=== PATIENT | female | born 1955 | race Caucasian/White ===

== ENCOUNTER → 2016-12-22 | Outpatient (CLI) | payer OTHER ==
[2014-12-25 09:50] VITALS: BP 120/60
--- NOTE | 2016-12-22 11:48 | CT ---
HISTORY: Hematuria Study: CT abdomen and pelvis without contrast Comparison: September 29, 2014 Technique: Multiple axial images of the abdomen and pelvis were obtained from the lung bases to the pubic symphy sis without the administration of IV contrast. Sagittal and coronal reformations were provided. Findings: The visualized portions of the lung bases are unremarkable. There is no hydronephrosis. There is a 5 mm calculus in the mid right kidney. No left renal calculus is demonstrated. There is a small exophy tic cyst off the upper pole of the left kidney laterally. The liver and spleen and pancreas and adren al glands are unremarkable. There is a filter in the IVC.. The gallbladder is unremarkable in its CT appearance. No significant mesenteric lymphadenopathy or stranding can be observed. No free fluid o r free air is seen within the abdomen. The appendix is normal. The uterus is absent. There is no abn ormal adnexal mass. No bowel wall thickening or bowel dilatation is present. The colon is unremarkab le. Specifically, there is no diverticulosis noted within the sigmoid colon. The urinary bladder is grossly unremarkable. The bony structures are grossly intact. IMPRESSION: 1. 5 mm calculus in the right mid kidney without hydronephrosis Reported By:
== END ==
LOC: RAD 10:29
PROVIDERS: ATTEND Internal Medicine
DX: R31.9 Hematuria, unspecified (principal)
CPT/HCPCS: 74176

== ENCOUNTER → 2017-03-06 | Outpatient (CLI) | payer OTHER ==
[2014-12-25 09:50] VITALS: BP 120/60
--- NOTE | 2017-03-06 15:03 | MG ---
HISTORY: SCREENING Comparison: 12/01/2015 FINDINGS: Bilateral CC and MLO projections of the right and left breast were obtained. Fatty fibroglandular ti ssue is seen to be present. No significant architectural distortion, mass or clustered microcalcific ations can be observed to suggest malignancy. No skin thickening or nipple retraction is appreciated . No pathological lymphadenopathy can be identified. Benign-appearing calcifications scattered thro ughout the right and left breasts are observed. IMPRESSION: NO RADIOGRAPHIC EVIDENCE OF MALIGNANCY. ACR CATEGORY 2 - benign findings. FOLLOW-UP EXAM 1 YEAR. Diagnostic CAD was utilized and reviewed. * 0 (ZERO) - ASSESSMENT INCOMPLETE; ADDITIONAL IMAGING IS NEEDED. * 1/ (ONE) - NEGATIVE. * 2/II (TWO) - BENIGN FINDINGS. * 3/III (THREE) - PROBABLY BENIGN FINDING; SHORT INTERVAL FOLLOW-UP SUGGESTED. * 4/IV (FOUR) - SUSPICIOUS ABNORMALITY; BIOPSY SHOULD BE CONSIDERED. * 5/V - HIGHLY SUSPICIOUS OF MALIGNANCY; BIOPSY SHOULD BE PERFORMED. A NEGATIVE X-RAY REPORT SHOULD NOT DELAY BIOPSY IF A DOMINANT OR CLINICALLY SUSPICIOUS MASS IS PRESENT; 4 TO 8 PERCENT OF CANCERS ARE NOT IDENTIFIED BY X-RAY. A NEGA TIVE REPORT MAY REINFORCE THE CLINICAL IMPRESSION. ADENOSIS AND DENSE BREASTS MAY OBSCURE AN UNDERLY ING NEOPLASM. Reported By:
== END ==
LOC: RAD 09:41
PROVIDERS: ATTEND Specialist
DX: Z12.31 Encounter for screening mammogram for malignant neoplasm of breast (principal)
CPT/HCPCS: 77067

== ENCOUNTER 2022-06-23 14:05 | Observation (INO) ==
[2022-06-23] MEDS: NORMODYNE INJ 20 MG VIAL IV PRN ×5 (15:49→23:06)
[2022-06-23] MEDS: NS 1,000 ML IV 1,000 ML IV SCH (15:49)
[2022-06-23] MEDS ORDERED: CATAPRES-TTS-3 TD SCH (16:00)
[2022-06-23 16:10] LABS: BASOPHILS # (AUTO) 0.1 X10^3/uL (0.0-0.1); BASOPHILS % (AUTO) 0.8 % (0.2-1.0); EOSINOPHILS # (AUTO) 0.2 x10^3/uL (0.0-0.2); EOSINOPHILS % (AUTO) 1.8 % (0.9-2.9); LYMPHOCYTES # (AUTO) 2.5 X10^3/uL (1.3-2.9); LYMPHOCYTES % (AUTO) 21.7 % (21.0-51.0); MEAN CORPUSCULAR HEMOGLOBIN 26.2 pg (27.0-34.0); MEAN CORPUSCULAR HGB CONC 32.7 g/dL (33.0-35.0); MEAN CORPUSCULAR VOLUME 80.2 fL (80.0-100.0); MEAN PLATELET VOLUME 8.7 fL (7.4-11.0); MONOCYTES # (AUTO) 0.9 x10^3/uL (0.3-0.8); MONOCYTES % (AUTO) 7.6 % (0.0-13.0); NEUTROPHILS # (AUTO) 7.7 x10^3/uL (2.2-4.8); NEUTROPHILS % (AUTO) 68.1 % (42.0-75.0); PLATELET COUNT 264 X10^3/uL (150.0-450.0); RED BLOOD COUNT 5.36 X10^6/uL (3.5-5.4); RED CELL DISTRIBUTION WIDTH 15.7 % (11.6-16.5); WHITE BLOOD COUNT 11.3 X10^3/uL (3.6-10.0)
[2022-06-23 16:12] VITALS: BMI 53.8
--- NOTE | 2022-06-23 16:13 | EKG ---
Test Reason : sob Blood Pressure : */* mmHG Vent. Rate : 87 BPM Atrial Rate : 87 BPM P-R Int : 188 ms QRS Dur : 80 ms QT Int : 396 ms P-R-T Axes : 49 21 55 degrees QTc Int : 476 ms Normal sinus rhythm Nonspecific T wave abnormality Prolonged QT Abnormal ECG No previous ECGs available Confirmed by Margarito Faustin ([id number]) on 06/24/2022 10:19:03 AM Referred By: Confirmed By: Margarito Faustin
[2022-06-23 16:37] LABS: ALANINE AMINOTRANSFERASE 25 Units/L (12-78); ALBUMIN 3.6 g/dL (3.4-5.0); ALKALINE PHOSPHATASE 114 Units/L (46-116); ASPARTATE AMINO TRANSFERASE 18 Units/L (15-37); BLOOD UREA NITROGEN 13 mg/dL (7-18); CALCIUM 8.9 mg/dL (8.5-10.1); CARBON DIOXIDE 34.9 mmol/L (21-32); CHLORIDE 102 mmol/L (98-107); COR NA(FOR HYPERGLY) 143 mmol/L (136-145); CREATINE KINASE 80 Units/L (26-192); CREATININE 1.45 mg/dL (0.55-1.02); GLUCOSE 133 mg/dL (65-99); POTASSIUM 3.1 mmol/L (3.5-5.1); SODIUM 142 mmol/L (136-145); TOTAL PROTEIN 6.8 g/dL (6.4-8.2); eGFR NON BLACK RACES 38 (>60)
[2022-06-23 20:10] LABS: BILIRUBIN,URINE NEGATIVE (NEGATIVE); BLOOD/HEMOGLOBIN,URINE 1+ (NEGATIVE); GLUCOSE, URINE NEGATIVE (NEGATIVE); KETONES,URINE NEGATIVE (NEGATIVE); LEUKOCYTE ESTERASE ,URINE NEGATIVE (NEGATIVE); NITRITES,URINE NEGATIVE (NEGATIVE); PROTEIN,URINE 4+ (NEGATIVE); UROBILINOGEN,URINE NORMAL (NORMAL)
[2022-06-23 20:23] LABS: APPEARANCE,URINE CLEAR (CLEAR); COLOR,URINE YELLOW (YELLOW); RBC,URINE 0-2 /HPF (0-3)
[2022-06-23 20:24] LABS: BACTERIA,URINE 2+ /HPF (NEGATIVE); SQUAMOUS EPITHELIAL CELL,UR NUMEROUS /HPF (NEGATIVE)
[2022-06-23 20:25] LABS: HYALINE CASTS, URINE FEW /LPF (NEGATIVE)
[2022-06-23] MEDS: RESTORIL CAP 15 MG PO PRN (21:00)
[2022-06-23] MEDS ORDERED: PATIENT'S HOME MEDICATION (Aspirin 81 mg Tablet) PO SCH (23:15)
[2022-06-24] MEDS: ASPIRIN EC 81 MG PO SCH ×2 (00:45→08:35)
[2022-06-24] MEDS: NS 1,000 ML IV 1,000 ML IV SCH ×3 (03:45→20:56)
[2022-06-24 03:53] LABS: BASOPHILS # (AUTO) 0.1 X10^3/uL (0.0-0.1); BASOPHILS % (AUTO) 1.2 % (0.2-1.0); EOSINOPHILS # (AUTO) 0.3 x10^3/uL (0.0-0.2); EOSINOPHILS % (AUTO) 4.2 % (0.9-2.9); HEMATOCRIT 39.5 % (36.0-47.0); LYMPHOCYTES # (AUTO) 2.5 X10^3/uL (1.3-2.9); LYMPHOCYTES % (AUTO) 30.1 % (21.0-51.0); MEAN CORPUSCULAR HEMOGLOBIN 26.4 pg (27.0-34.0); MEAN CORPUSCULAR HGB CONC 32.9 g/dL (33.0-35.0); MEAN CORPUSCULAR VOLUME 80.2 fL (80.0-100.0); MEAN PLATELET VOLUME 8.9 fL (7.4-11.0); MONOCYTES # (AUTO) 0.6 x10^3/uL (0.3-0.8); MONOCYTES % (AUTO) 7.4 % (0.0-13.0); NEUTROPHILS # (AUTO) 4.7 x10^3/uL (2.2-4.8); NEUTROPHILS % (AUTO) 57.1 % (42.0-75.0); PLATELET COUNT 251 X10^3/uL (150.0-450.0); RED BLOOD COUNT 4.92 X10^6/uL (3.5-5.4); RED CELL DISTRIBUTION WIDTH 15.6 % (11.6-16.5); WHITE BLOOD COUNT 8.2 X10^3/uL (3.6-10.0)
[2022-06-24 04:06] LABS: ALANINE AMINOTRANSFERASE 21 Units/L (12-78); ALBUMIN 3.1 g/dL (3.4-5.0); ALKALINE PHOSPHATASE 100 Units/L (46-116); ASPARTATE AMINO TRANSFERASE 17 Units/L (15-37); BLOOD UREA NITROGEN 15 mg/dL (7-18); CARBON DIOXIDE 31.6 mmol/L (21-32); CHLORIDE 103 mmol/L (98-107); COR CA(FOR HYPOALB) 8.7 mg/dL (8.5-10.1); CREATINE KINASE 49 Units/L (26-192); CREATININE 1.37 mg/dL (0.55-1.02); GLUCOSE 108 mg/dL (65-99); SODIUM 141 mmol/L (136-145); eGFR NON BLACK RACES 41 (>60)
[2022-06-24] MEDS ORDERED: POTASSIUM CHLORIDE LIQ 20 MEQ UDC PO PRN (04:11)
[2022-06-24] MEDS ORDERED: KLOR-CON PO PRN (04:11)
[2022-06-24] MEDS ORDERED: MICRO K EXTEN CAP 10 MEQ PO PRN (04:11)
[2022-06-24] MEDS: NORMODYNE INJ 20 MG VIAL IV PRN (04:45)
[2022-06-24] MEDS ORDERED: APRESOLINE INJ 20 MG VIAL IVP ONE ×2 (05:11→14:13)
[2022-06-24] MEDS ORDERED: APRESOLINE INJ 20 MG VIAL ONE (05:14)
[2022-06-24] MEDS: K-DUR TAB 20 MEQ PO PRN (05:24)
[2022-06-24] MEDS: FLEXERIL TAB 10 MG PO SCH ×3 (05:24→21:00)
[2022-06-24] MEDS: NEURONTIN CAP 400 MG PO SCH ×3 (05:24→21:00)
--- NOTE | 2022-06-24 07:27 | RAD ---
HISTORYShortness of breathSTUDYChest AP [id number]/11/2019FINDINGSHear t size is normal. Rachel are normal. Lung torres are clear. No pleural effusions are identified. Bony thorax is unremarkable.IMPRESSIONNo significant abnormality identifiedElectronically signed by: GIRISH WILKERSON (June 24, 2022 07:25:49)
[2022-06-24] MEDS: SINGULAIR TAB 10 MG PO SCH (08:34)
[2022-06-24] MEDS: K-DUR TAB 20 MEQ PO SCH (08:34)
[2022-06-24] MEDS: XARELTO PO SCH (08:34)
[2022-06-24] MEDS: VASOTEC TAB 20 MG PO SCH ×2 (08:35→20:57)
[2022-06-24] MEDS: ULORIC PO SCH (08:35)
[2022-06-24] MEDS: ISOSORBIDE DINITRATE PO SCH ×2 (08:35→20:57)
[2022-06-24] MEDS ORDERED: FIORICET TAB PO PRN (09:00)
[2022-06-24] MEDS: NORVASC TAB 5 MG PO SCH (12:34)
[2022-06-24] MEDS: MAXZIDE 37.5/25 MG PO SCH (12:34)
[2022-06-25] MEDS: RESTORIL CAP 15 MG PO PRN ×2 (00:07→20:13)
[2022-06-25] MEDS: NORMODYNE INJ 20 MG VIAL IV PRN ×4 (00:08→13:15)
--- NOTE | 2022-06-25 00:11 | DR.H&P ---
H&P - History & Physical for Day of: H&P Date: 06/23/22 - Chief Complaint Chief Complaint: HYPERTENSION, SOB, HEADACHE, NAUSEA - History of Present Illness History of Present Illness: IS A 66 YEAR OLD PATIENT OF OURS. SHE WAS A DIRECT ADMISSION FROM THE OFFICE FOR EVALUATION AND TREATMENT OF HYPERTENSIVE CRISIS, SHORTNESS OF BREATH, HEADACHE, AND INTRACTABLE NAUSEA. HER SYMPTOMS STARTED ON 06/22/2022. SHE DESCRIBES HEADACHE DULL AND INTERMITTENT. SHE RATES PAIN A 6/10. SHE REPORTS THAT HER BLOOD PRESSURES AT HOME HAVE BEEN OVER 200/100. HER PMH INCLUDES: VALVULAR HEART DISEASE, HYPERLIPIDEMIA, HTN, MITRAL VALVE PROLAPSE, SLEEP APNEA, GERD, HYPOTHYROIDISM, ANXIETY, HISTORY OF DVTs, HYSTERECTOMY. ON ARRIVAL TO THE HOSPITAL, HER VITALS WERE: 98.3-107-20-92%-215/130. LABS WERE OBTAINED. WBC 11.3, RBC 5.36, HGB 14.0, HCT 43.0, PLT COUNT 264, SODIUM 142, POTASSIUM 3.1, CHLORIDE 102, CARBON DIOXIDE 34.9, BUN 13, CREATININE 1.45, GLUCOSE 133, CALCIUM 8.9, TOTAL BILI 0.50, AST 18, ALT 25, ALK PHOS 114, CREATINE KINASE 80, TROPONIN 79.6, TOTAL PROTEIN 6.8, ALBUMIN 3.6. A URINALYSIS WAS OBTAINED AND REVEALED: WBC 0-2, RBC 0-2, BACTERIA 2+, LEUKOCYTES NEGATIVE, BLOOD 1+, PROTEIN 4+. A URINE CULTURE WAS SET UP. A CHEST XRAY WAS OBTAINED AND REVEALED: No significant abnormality identified. AN EKG WAS OBTAINED AND REVEALED: NORMAL SINUS RHYTHM WITH HR 87 BPM. SHE WAS STARTED ON NORMAL SALINE AT 80 ML/HR, CLONIDINE 0.3MG/HR TD PATCH, LABETALOL 10MG IV Q15MIN PRN, MAXZIDE 37.5-25MG DAILY, AMLODIPINE 5MG DAILY, AND THE POTASSIUM PROTCOL. HER HOME MEDICATIONS OF FIORICET, ECOTRIN, FLEXERIL, ULORIC, NEURONTIN, ISOSORBIDE, MONTELUKAST, XARELTO, AND RESTORIL WERE RESUMED. OTHERWISE, WE WILL FOLLOW-UP WITH AM LABS AND CONTINUE TO MONITOR. - Past Medical History Past Medical History: Hypertension, GERD, Gout, Headaches - Past Surgical History Surgical History: Hysterectomy, Ortho Surgery - Family History Family Medical History: Cancer - Social History Does patient currently use any type of tobacco product: No Have you used tobacco products in the last 12 months: No Alcohol Use: None Drug Use: None - Medications Home Medications: codeine Allergy (Verified 06/22/22 17:18) Penicillins Allergy (Verified 01/24/19 16:26) CONTINUE taking the following medications aspirin 81 mg tablet 81 mg PO DAILY 06/23/22 [History] cyclobenzaprine 10 mg tablet 10 mg PO TID 06/23/22 [History] enalapril maleate 20 mg tablet 20 mg PO BID 06/23/22 [History] febuxostat 40 mg tablet 40 mg PO DAILY 06/23/22 [History] gabapentin 400 mg capsule 400 mg PO TID 06/23/22 [History] isosorbide dinitrate 20 mg tablet 20 mg PO BID 06/23/22 [History] montelukast 10 mg tablet 10 mg PO DAILY 06/23/22 [History] potassium chloride 20 mEq tablet,extended release 20 meq PO DAILY 06/23/22 [History] rivaroxaban 10 mg tablet 10 mg PO DAILY 06/23/22 [History] - Review of Systems Constitutional: No Symptoms Reported Eyes: No Symptoms Reported ENT: No Symptoms Reported Respiratory: Shortness of Breath Cardiovascular: No Symptoms Reported Gastrointestinal: Nausea Genitourinary: No Symptoms Reported Musculoskeletal: No Symptoms Reported Skin: No Symptoms Reported Neurological: Other (HEACACHE ) - Physical Exam Vital Signs: Temperature 98.7 F Pulse Rate [Left Brachial] 115 Respiratory Rate 20 Blood Pressure [Right Arm] 182/86 Blood Pressure [Left Arm] 178/92 O2 Sat by Pulse Oximetry 96 Oriented: Normal Eyes: Normal Ear: Normal Nose: Normal Throat: Normal Respiratory: Clear Throughout Cardiovascular: Tachycardia : Normal Auscultation: Bowel Sounds: Normal Palpation: Normal Tenderness: Normal Skin: Normal Musculoskeletal: Normal Psychiatric: Normal Mood Description: Calm Affect: Normal Speech Pattern: Clear - Assessment/Plan (1) Malignant hypertensive urgency Status: Acute Plan: ADMIT, NORMAL SALINE AT 80 ML/HR, CLONIDINE 0.3MG/HR TD PATCH, LABETALOL 10MG IV Q15MIN PRN, MAXZIDE 37.5-25MG DAILY, AMLODIPINE 5MG DAILY, AND THE POTASSIUM PROTCOL. RESUME HOME MEDS OF: FIORICET, ECOTRIN, FLEXERIL, ULORIC, NEURONTIN, ISOSORBIDE, MONTELUKAST, XARELTO, AND RESTORIL (2) Shortness of breath Status: Acute (3) Nausea Status: Acute (4) Persistent headaches Status: Acute (5) GERD (gastroesophageal reflux disease) Qualifiers: Esophagitis presence: esophagitis presence not specified Qualified Code(s): K21.9 - Gastro-esophageal reflux disease without esophagitis Status: Chronic (6) Hyperlipidemia Status: Acute (7) Hypothyroidism Qualifiers: Hypothyroidism type: acquired Qualified Code(s): E03.9 - Hypothyroidism, unspecified Status: Chronic - Allergies Allergies/Adverse Reactions: Allergies Allergy/AdvReac Type Severity Reaction Status Date / Time codeine Allergy Verified 06/22/22 17:18 Penicillins Allergy Verified 01/24/19 16:26
[2022-06-25] MEDS: FLEXERIL TAB 10 MG PO SCH ×3 (05:43→20:14)
[2022-06-25] MEDS: NEURONTIN CAP 400 MG PO SCH ×3 (05:43→20:13)
[2022-06-25 05:55] LABS: BASOPHILS # (AUTO) 0.1 X10^3/uL (0.0-0.1); BASOPHILS % (AUTO) 0.7 % (0.2-1.0); EOSINOPHILS # (AUTO) 0.5 x10^3/uL (0.0-0.2); EOSINOPHILS % (AUTO) 5.9 % (0.9-2.9); HEMOGLOBIN 12.6 g/dL (12.0-16.0); LYMPHOCYTES # (AUTO) 2.1 X10^3/uL (1.3-2.9); MEAN CORPUSCULAR HGB CONC 32.4 g/dL (33.0-35.0); MEAN CORPUSCULAR VOLUME 80.2 fL (80.0-100.0); MEAN PLATELET VOLUME 8.9 fL (7.4-11.0); MONOCYTES # (AUTO) 0.8 x10^3/uL (0.3-0.8); NEUTROPHILS # (AUTO) 4.6 x10^3/uL (2.2-4.8); NEUTROPHILS % (AUTO) 57.4 % (42.0-75.0); PLATELET COUNT 242 X10^3/uL (150.0-450.0); RED BLOOD COUNT 4.86 X10^6/uL (3.5-5.4); RED CELL DISTRIBUTION WIDTH 15.9 % (11.6-16.5); WHITE BLOOD COUNT 8.1 X10^3/uL (3.6-10.0)
[2022-06-25 06:11] LABS: ALANINE AMINOTRANSFERASE 22 Units/L (12-78); ALBUMIN 3.1 g/dL (3.4-5.0); ALKALINE PHOSPHATASE 96 Units/L (46-116); ASPARTATE AMINO TRANSFERASE 16 Units/L (15-37); BLOOD UREA NITROGEN 15 mg/dL (7-18); CALCIUM 8.4 mg/dL (8.5-10.1); CARBON DIOXIDE 29.6 mmol/L (21-32); CHLORIDE 105 mmol/L (98-107); COR CA(FOR HYPOALB) 9.1 mg/dL (8.5-10.1); CREATININE 1.26 mg/dL (0.55-1.02); GLUCOSE 106 mg/dL (65-99); POTASSIUM 3.5 mmol/L (3.5-5.1); SODIUM 141 mmol/L (136-145); TOTAL PROTEIN 5.9 g/dL (6.4-8.2); eGFR NON BLACK RACES 45 (>60)
[2022-06-25] MEDS: XARELTO PO SCH (08:24)
[2022-06-25] MEDS: ASPIRIN EC 81 MG PO SCH (08:25)
[2022-06-25] MEDS: MAXZIDE 37.5/25 MG PO SCH (08:25)
[2022-06-25] MEDS: ULORIC PO SCH (08:25)
[2022-06-25] MEDS: VASOTEC TAB 20 MG PO SCH ×2 (08:25→20:14)
[2022-06-25] MEDS: SINGULAIR TAB 10 MG PO SCH (08:25)
[2022-06-25] MEDS: NORVASC TAB 5 MG PO SCH (08:25)
[2022-06-25] MEDS: ISOSORBIDE DINITRATE PO SCH ×2 (08:25→20:14)
[2022-06-25] MEDS: K-DUR TAB 20 MEQ PO SCH (08:37)
--- NOTE | 2022-06-25 11:18 | PCM.PROG ---
Progress Note Progress Note for Day of Date of Exam: 06/25/22 Subjective Subjective: Patient seen at bedside, no events overnight. She is admitted for hypertensive crisis and shortness of breath. She had a headache on admission which has resolved. She states her nausea is better. Her BP at home was SBP in 200s, it has improved this morning. Labs/imaging reviewed - Ct-head (-) BUN/Cr 15.26 Urine Cx: contamination Plan: Monitor BP closely, continue clonidine patch, norvasc, Vasotec and Maxzide. Continue Labetalol prn for SBP > 160. Continue home medications. Re place K as per protocol. Monitor AM labs/imaging. Past Medical Family Social History Allergies: Allergies codeine Allergy (Verified 06/22/22 17:18) Penicillins Allergy (Verified 01/24/19 16:26) Vital Signs and I&O's Vital Signs: Temperature 97.8 F Pulse Rate [Left Brachial] 102 Respiratory Rate 20 Blood Pressure [Right Arm] 171/78 Blood Pressure [Left Arm] 178/92 O2 Sat by Pulse Oximetry 97 Intake and Output: Intake & Output 06/22/22 06/23/22 06/24/22 06/25/22 23:59 23:59 23:59 23:59 Intake Total 1060 / 1060 2647 / 2647 1306 / 1306 Balance 1060 / 1060 2647 / 2647 1306 / 1306 Physical Exam Oriented: Normal Eyes: Normal Ear: Normal Nose: Normal Throat: Normal Cardiovascular: Normal Auscultation: Bowel Sounds: Normal Tenderness: Normal Skin: Normal Musculoskeletal: Normal Psychiatric: Normal Mood Description: Calm Affect: Normal Speech Pattern: Clear and Appropriate Laboratory and Diagnostics Result Diagrams: 06/25/22 05:31 06/25/22 05:31 Labs: 06/23/22 19:42 Urine,Clean Catch Urine Culture - Final Laboratory WBC 8.1 X10^3/uL (3.6-10.0) 06/25/22 05:31 RBC 4.86 X10^6/uL (3.5-5.4) 06/25/22 05:31 Hgb 12.6 g/dL (12.0-16.0) 06/25/22 05:31 Hct 39.0 % (36.0-47.0) 06/25/22 05:31 MCV 80.2 fL (80.0-100.0) 06/25/22 05:31 MCH 26.0 pg (27.0-34.0) L 06/25/22 05:31 MCHC 32.4 g/dL (33.0-35.0) L 06/25/22 05:31 RDW 15.9 % (11.6-16.5) 06/25/22 05:31 Plt Count 242 X10^3/uL (150.0-450.0) 06/25/22 05:31 MPV 8.9 fL (7.4-11.0) 06/25/22 05:31 Neut % (Auto) 57.4 % (42.0-75.0) 06/25/22 05:31 Lymph % (Auto) 26.0 % (21.0-51.0) 06/25/22 05:31 [place] % (Auto) 10.0 % (0.0-13.0) 06/25/22 05:31 Eos % (Auto) 5.9 % (0.9-2.9) H 06/25/22 05:31 Baso % (Auto) 0.7 % (0.2-1.0) 06/25/22 05:31 Neut # (Auto) 4.6 x10^3/uL (2.2-4.8) 06/25/22 05:31 Lymph # (Auto) 2.1 X10^3/uL (1.3-2.9) 06/25/22 05:31 [place] # (Auto) 0.8 x10^3/uL (0.3-0.8) 06/25/22 05:31 Eos # (Auto) 0.5 x10^3/uL (0.0-0.2) H 06/25/22 05:31 Baso # (Auto) 0.1 X10^3/uL (0.0-0.1) 06/25/22 05:31 Absolute Nucleated RBC 0.0 /100WBC 06/25/22 05:31 Sodium 141 mmol/L (136-145) 06/25/22 05:31 Corrected Sodium TNP 06/25/22 05:31 Potassium 3.5 mmol/L (3.5-5.1) 06/25/22 05:31 Chloride 105 mmol/L (98-107) 06/25/22 05:31 Carbon Dioxide 29.6 mmol/L (21-32) 06/25/22 05:31 BUN 15 mg/dL (7-18) 06/25/22 05:31 Creatinine 1.26 mg/dL (0.55-1.02) H 06/25/22 05:31 Est GFR (MDRD) Af Amer 55 (>60) L 06/25/22 05:31 Est GFR (MDRD) Non-Af 45 (>60) L 06/25/22 05:31 Glucose 106 mg/dL (65-99) H 06/25/22 05:31 Calcium 8.4 mg/dL (8.5-10.1) L 06/25/22 05:31 Corrected Calcium 9.1 mg/dL (8.5-10.1) 06/25/22 05:31 Magnesium 2.0 mg/dL (2.0-2.9) 06/25/22 05:31 Total Bilirubin 0.50 mg/dL (0.2-1.0) 06/25/22 05:31 AST 16 Units/L (15-37) 06/25/22 05:31 ALT 22 Units/L (12-78) 06/25/22 05:31 Alkaline Phosphatase 96 Units/L (46-116) 06/25/22 05:31 Creatine Kinase 49 Units/L (26-192) 06/24/22 03:35 Troponin I High Sens 50.8 ng/L (4.0-60.0) 06/24/22 03:35 Total Protein 5.9 g/dL (6.4-8.2) L 06/25/22 05:31 Albumin 3.1 g/dL (3.4-5.0) L 06/25/22 05:31 Globulin 2.8 g/dL (2.5-4.5) 06/25/22 05:31 Albumin/Globulin Ratio 1.1 Ratio (1.1-2.1) 06/25/22 05:31 Specimen Type Clean catch urine 06/23/22 19:42 Urine Color Yellow (YELLOW) 06/23/22 19:42 Urine Appearance Clear (CLEAR) 06/23/22 19:42 Urine pH 6.0 (5.0 - 8.0) 06/23/22 19:42 Ur Specific [place] 1.020 (1.000-1.030) 06/23/22 19:42 Urine Protein 4+ (NEGATIVE) 06/23/22 19:42 Urine Glucose (UA) Negative (NEGATIVE) 06/23/22 19:42 Urine Ketones Negative (NEGATIVE) 06/23/22 19:42 Urine Blood 1+ (NEGATIVE) 06/23/22 19:42 Urine Nitrite Negative (NEGATIVE) 06/23/22 19:42 Urine Bilirubin Negative (NEGATIVE) 06/23/22 19:42 Urine Urobilinogen Normal (NORMAL) 06/23/22 19:42 Ur Leukocyte Esterase Negative (NEGATIVE) 06/23/22 19:42 Urine RBC 0-2 /HPF (0-3) 06/23/22 19:42 Urine WBC 0-2 /HPF (0-5) 06/23/22 19:42 Ur Squamous Epith Cells Numerous /HPF (NEGATIVE) 06/23/22 19:42 Urine Bacteria 2+ /HPF (NEGATIVE) 06/23/22 19:42 Hyaline Casts Few /LPF (NEGATIVE) 06/23/22 19:42 Ur Culture Indicated? Yes/culture set up 06/23/22 19:42 Plan (1) Malignant hypertensive urgency: Status: Acute (2) Shortness of breath: Status: Acute (3) Nausea: Status: Acute (4) Persistent headaches: Status: Acute (5) GERD (gastroesophageal reflux disease): Status: Chronic Qualifiers: Esophagitis presence: esophagitis presence not specified Qualified Code(s): K21.9 - Gastro-esophageal reflux disease without esophagitis (6) Hyperlipidemia: Status: Acute (7) Hypothyroidism: Status: Chronic Qualifiers: Hypothyroidism type: acquired Qualified Code(s): E03.9 - Hypothyroidism, unspecified
[2022-06-25] MEDS ORDERED: APRESOLINE INJ 20 MG VIAL IVP ONE (14:19)
[2022-06-25] MEDS ORDERED: APRESOLINE INJ 20 MG VIAL ONE (14:23)
[2022-06-25] MEDS ORDERED: APRESOLINE TAB 25 MG PO SCH ×2 (20:00→22:00)
[2022-06-25] MEDS: NS 1,000 ML IV 1,000 ML IV SCH (20:01)
[2022-06-25] MEDS: APRESOLINE INJ 20 MG VIAL IVP PRN (21:30)
[2022-06-26] MEDS ORDERED: APRESOLINE INJ 20 MG VIAL IVP ONE (00:25)
[2022-06-26] MEDS: NS 1,000 ML IV 1,000 ML IV SCH ×2 (04:39→08:22)
[2022-06-26 05:36] LABS: BASOPHILS # (AUTO) 0.1 X10^3/uL (0.0-0.1); EOSINOPHILS # (AUTO) 0.4 x10^3/uL (0.0-0.2); EOSINOPHILS % (AUTO) 4.2 % (0.9-2.9); HEMATOCRIT 40.7 % (36.0-47.0); HEMOGLOBIN 13.4 g/dL (12.0-16.0); LYMPHOCYTES # (AUTO) 2.2 X10^3/uL (1.3-2.9); MEAN CORPUSCULAR HEMOGLOBIN 26.1 pg (27.0-34.0); MEAN CORPUSCULAR HGB CONC 32.9 g/dL (33.0-35.0); MEAN CORPUSCULAR VOLUME 79.5 fL (80.0-100.0); MEAN PLATELET VOLUME 9.2 fL (7.4-11.0); MONOCYTES # (AUTO) 0.7 x10^3/uL (0.3-0.8); MONOCYTES % (AUTO) 7.7 % (0.0-13.0); NEUTROPHILS # (AUTO) 5.7 x10^3/uL (2.2-4.8); NEUTROPHILS % (AUTO) 63.1 % (42.0-75.0); PLATELET COUNT 270 X10^3/uL (150.0-450.0); RED BLOOD COUNT 5.12 X10^6/uL (3.5-5.4); RED CELL DISTRIBUTION WIDTH 16.1 % (11.6-16.5)
[2022-06-26] MEDS: NEURONTIN CAP 400 MG PO SCH ×3 (05:45→21:00)
[2022-06-26] MEDS: APRESOLINE TAB 25 MG PO SCH ×3 (05:45→21:00)
[2022-06-26] MEDS: FLEXERIL TAB 10 MG PO SCH ×3 (05:46→21:00)
[2022-06-26 05:49] LABS: ALBUMIN 3.1 g/dL (3.4-5.0); CALCIUM 8.5 mg/dL (8.5-10.1); CARBON DIOXIDE 27.9 mmol/L (21-32); COR CA(FOR HYPOALB) 9.2 mg/dL (8.5-10.1); CREATININE 1.21 mg/dL (0.55-1.02); POTASSIUM 3.5 mmol/L (3.5-5.1); TOTAL PROTEIN 6.1 g/dL (6.4-8.2)
[2022-06-26] MEDS: XARELTO PO SCH (08:31)
[2022-06-26] MEDS: ASPIRIN EC 81 MG PO SCH (08:31)
[2022-06-26] MEDS: K-DUR TAB 20 MEQ PO SCH (08:31)
[2022-06-26] MEDS: VASOTEC TAB 20 MG PO SCH ×2 (08:31→20:56)
[2022-06-26] MEDS: ULORIC PO SCH (08:31)
[2022-06-26] MEDS: NORVASC TAB 5 MG PO SCH (08:32)
[2022-06-26] MEDS: MAXZIDE 37.5/25 MG PO SCH (08:32)
[2022-06-26] MEDS: SINGULAIR TAB 10 MG PO SCH (08:32)
[2022-06-26] MEDS: ISOSORBIDE DINITRATE PO SCH ×2 (08:32→20:55)
[2022-06-26] MEDS ORDERED: NORCO 5/325 MG TAB PO PRN (10:56)
[2022-06-26] MEDS ORDERED: ZOFRAN INJ 4 MG VIAL IVP PRN (10:58)
--- NOTE | 2022-06-26 10:59 | PCM.PROG ---
Progress Note Progress Note for Day of Date of Exam: 06/26/22 Subjective Subjective: Patient seen at bedside, overnight patient's BP remained elevated in the 200s. She is admitted for hypertensive crisis and shortness of breath. She was given multiple different medications including IV hydralazine and adjusting doses of current PO medications. She states she feels fine, denies headache, N/V. She is currently on room air and sitting on the side of her bed. She reports having right shoulder/arm pain since she had a fall in April. She had a fracture and was taken to [facility] in [place] for reduction. She has had limited ROM and pain in that arm. Patient's BP this morning was 170/90. Labs/imaging reviewed - Ct-head (-) Plan: Monitor BP closely, continue clonidine patch, norvasc 10 mg daily , Vasotec and Maxzide. Continue hydralazine 50 mg TID. Continue IV hydralazine prn. DC IVF, order renal US for AM. Change to cardiac diet. Will add [place] prn as patient states her BP tends to go up when she is in a lot of pain and that's what was happening yesterday. Monitor AM labs/imaging. Past Medical Family Social History Allergies: Allergies codeine Allergy (Verified 06/22/22 17:18) Penicillins Allergy (Verified 01/24/19 16:26) Vital Signs and I&O's Vital Signs: Temperature 98.1 F Pulse Rate [Left Brachial] 128 Respiratory Rate 20 Blood Pressure [Right Arm] 173/103 Blood Pressure [Left Arm] 170/90 O2 Sat by Pulse Oximetry 96 Intake and Output: Intake & Output 06/23/22 06/24/22 06/25/22 06/26/22 23:59 23:59 23:59 23:59 Intake Total 1060 / 1060 2647 / 2647 2761 / 2761 960 / 960 Balance 1060 / 1060 2647 / 2647 2761 / 2761 960 / 960 Physical Exam Oriented: Normal Eyes: Normal Ear: Normal Nose: Normal Throat: Normal Cardiovascular: Normal Auscultation: Bowel Sounds: Normal Tenderness: Normal Skin: Normal Musculoskeletal: Right and Arm (limited ROM, slight tenderness ) Psychiatric: Normal Mood Description: Calm Affect: Normal Speech Pattern: Clear and Appropriate Laboratory and Diagnostics Result Diagrams: 06/26/22 05:15 05/07/23 05:15 Labs: 06/23/22 19:42 Urine,Clean Catch Urine Culture - Final Laboratory WBC 9.0 X10^3/uL (3.6-10.0) 06/26/22 05:15 RBC 5.12 X10^6/uL (3.5-5.4) 06/26/22 05:15 Hgb 13.4 g/dL (12.0-16.0) 06/26/22 05:15 Hct 40.7 % (36.0-47.0) 06/26/22 05:15 MCV 79.5 fL (80.0-100.0) L 06/26/22 05:15 MCH 26.1 pg (27.0-34.0) L 06/26/22 05:15 MCHC 32.9 g/dL (33.0-35.0) L 06/26/22 05:15 RDW 16.1 % (11.6-16.5) 06/26/22 05:15 Plt Count 270 X10^3/uL (150.0-450.0) 06/26/22 05:15 MPV 9.2 fL (7.4-11.0) 06/26/22 05:15 Neut % (Auto) 63.1 % (42.0-75.0) 06/26/22 05:15 Lymph % (Auto) 24.0 % (21.0-51.0) 06/26/22 05:15 [place] % (Auto) 7.7 % (0.0-13.0) 06/26/22 05:15 Eos % (Auto) 4.2 % (0.9-2.9) H 06/26/22 05:15 Baso % (Auto) 1.0 % (0.2-1.0) 06/26/22 05:15 Neut # (Auto) 5.7 x10^3/uL (2.2-4.8) H 06/26/22 05:15 Lymph # (Auto) 2.2 X10^3/uL (1.3-2.9) 06/26/22 05:15 [place] # (Auto) 0.7 x10^3/uL (0.3-0.8) 06/26/22 05:15 Eos # (Auto) 0.4 x10^3/uL (0.0-0.2) H 06/26/22 05:15 Baso # (Auto) 0.1 X10^3/uL (0.0-0.1) 06/26/22 05:15 Absolute Nucleated RBC 0.1 /100WBC 06/26/22 05:15 Sodium 138 mmol/L (136-145) 06/26/22 05:15 Corrected Sodium 139 mmol/L (136-145) 06/26/22 05:15 Potassium 3.5 mmol/L (3.5-5.1) 06/26/22 05:15 Chloride 104 mmol/L (98-107) 06/26/22 05:15 Carbon Dioxide 27.9 mmol/L (21-32) 06/26/22 05:15 BUN 14 mg/dL (7-18) 06/26/22 05:15 Creatinine 1.21 mg/dL (0.55-1.02) H 06/26/22 05:15 Est GFR (MDRD) Af Amer 57 (>60) L 06/26/22 05:15 Est GFR (MDRD) Non-Af 47 (>60) L 06/26/22 05:15 Glucose 123 mg/dL (65-99) H 06/26/22 05:15 Calcium 8.5 mg/dL (8.5-10.1) 06/26/22 05:15 Corrected Calcium 9.2 mg/dL (8.5-10.1) 06/26/22 05:15 Magnesium 2.0 mg/dL (2.0-2.9) 06/25/22 05:31 Total Bilirubin 0.50 mg/dL (0.2-1.0) 06/26/22 05:15 AST 21 Units/L (15-37) 06/26/22 05:15 ALT 19 Units/L (12-78) 06/26/22 05:15 Alkaline Phosphatase 102 Units/L (46-116) 06/26/22 05:15 Creatine Kinase 49 Units/L (26-192) 06/24/22 03:35 Troponin I High Sens 50.8 ng/L (4.0-60.0) 06/24/22 03:35 Total Protein 6.1 g/dL (6.4-8.2) L 06/26/22 05:15 Albumin 3.1 g/dL (3.4-5.0) L 06/26/22 05:15 Globulin 3.0 g/dL (2.5-4.5) 06/26/22 05:15 Albumin/Globulin Ratio 1.0 Ratio (1.1-2.1) L 06/26/22 05:15 Specimen Type Clean catch urine 06/23/22 19:42 Urine Color Yellow (YELLOW) 06/23/22 19:42 Urine Appearance Clear (CLEAR) 06/23/22 19:42 Urine pH 6.0 (5.0 - 8.0) 06/23/22 19:42 Ur Specific [place] 1.020 (1.000-1.030) 06/23/22 19:42 Urine Protein 4+ (NEGATIVE) 06/23/22 19:42 Urine Glucose (UA) Negative (NEGATIVE) 06/23/22 19:42 Urine Ketones Negative (NEGATIVE) 06/23/22 19:42 Urine Blood 1+ (NEGATIVE) 06/23/22 19:42 Urine Nitrite Negative (NEGATIVE) 06/23/22 19:42 Urine Bilirubin Negative (NEGATIVE) 06/23/22 19:42 Urine Urobilinogen Normal (NORMAL) 06/23/22 19:42 Ur Leukocyte Esterase Negative (NEGATIVE) 06/23/22 19:42 Urine RBC 0-2 /HPF (0-3) 06/23/22 19:42 Urine WBC 0-2 /HPF (0-5) 06/23/22 19:42 Ur Squamous Epith Cells Numerous /HPF (NEGATIVE) 06/23/22 19:42 Urine Bacteria 2+ /HPF (NEGATIVE) 06/23/22 19:42 Hyaline Casts Few /LPF (NEGATIVE) 06/23/22 19:42 Ur Culture Indicated? Yes/culture set up 06/23/22 19:42 Plan (1) Malignant hypertensive urgency: Status: Acute (2) Right shoulder injury: Status: Acute (3) Shortness of breath: Status: Acute (4) Nausea: Status: Acute (5) Persistent headaches: Status: Acute (6) GERD (gastroesophageal reflux disease): Status: Chronic Qualifiers: Esophagitis presence: esophagitis presence not specified Qualified Code(s): K21.9 - Gastro-esophageal reflux disease without esophagitis (7) Hyperlipidemia: Status: Acute (8) Hypothyroidism: Status: Chronic Qualifiers: Hypothyroidism type: acquired Qualified Code(s): E03.9 - Hypothyroidism, unspecified
[2022-06-26] MEDS: APRESOLINE INJ 20 MG VIAL IVP PRN (15:54)
[2022-06-26] MEDS: K-DUR TAB 20 MEQ PO PRN (20:55)
[2022-06-26] MEDS: RESTORIL CAP 15 MG PO PRN (20:56)
[2022-06-27] MEDS: FLEXERIL TAB 10 MG PO SCH ×3 (05:34→21:12)
[2022-06-27] MEDS: NEURONTIN CAP 400 MG PO SCH ×3 (05:35→21:13)
[2022-06-27] MEDS: APRESOLINE TAB 25 MG PO SCH ×3 (05:35→21:12)
[2022-06-27 06:03] LABS: BASOPHILS # (AUTO) 0.1 X10^3/uL (0.0-0.1); EOSINOPHILS # (AUTO) 0.4 x10^3/uL (0.0-0.2); EOSINOPHILS % (AUTO) 4.6 % (0.9-2.9); HEMATOCRIT 39.8 % (36.0-47.0); HEMOGLOBIN 13.1 g/dL (12.0-16.0); LYMPHOCYTES # (AUTO) 2.3 X10^3/uL (1.3-2.9); LYMPHOCYTES % (AUTO) 28.3 % (21.0-51.0); MEAN CORPUSCULAR HGB CONC 32.8 g/dL (33.0-35.0); MEAN CORPUSCULAR VOLUME 79.2 fL (80.0-100.0); MEAN PLATELET VOLUME 9.3 fL (7.4-11.0); MONOCYTES # (AUTO) 0.8 x10^3/uL (0.3-0.8); MONOCYTES % (AUTO) 10.2 % (0.0-13.0); NEUTROPHILS # (AUTO) 4.6 x10^3/uL (2.2-4.8); NEUTROPHILS % (AUTO) 55.9 % (42.0-75.0); PLATELET COUNT 260 X10^3/uL (150.0-450.0); RED BLOOD COUNT 5.03 X10^6/uL (3.5-5.4); RED CELL DISTRIBUTION WIDTH 15.9 % (11.6-16.5); WHITE BLOOD COUNT 8.3 X10^3/uL (3.6-10.0)
[2022-06-27 06:19] LABS: ALANINE AMINOTRANSFERASE 21 Units/L (12-78); ALBUMIN 3.1 g/dL (3.4-5.0); ALKALINE PHOSPHATASE 89 Units/L (46-116); ASPARTATE AMINO TRANSFERASE 17 Units/L (15-37); BLOOD UREA NITROGEN 14 mg/dL (7-18); CALCIUM 8.6 mg/dL (8.5-10.1); CARBON DIOXIDE 26.7 mmol/L (21-32); CHLORIDE 103 mmol/L (98-107); COR CA(FOR HYPOALB) 9.3 mg/dL (8.5-10.1); CREATININE 1.23 mg/dL (0.55-1.02); GLUCOSE 106 mg/dL (65-99); POTASSIUM 3.8 mmol/L (3.5-5.1); SODIUM 137 mmol/L (136-145); eGFR NON BLACK RACES 46 (>60)
[2022-06-27] MEDS: NS 1,000 ML IV 1,000 ML IV SCH (08:03)
[2022-06-27] MEDS: MAXZIDE 37.5/25 MG PO SCH (09:17)
[2022-06-27] MEDS: ULORIC PO SCH (09:17)
[2022-06-27] MEDS: XARELTO PO SCH (09:17)
[2022-06-27] MEDS: K-DUR TAB 20 MEQ PO SCH (09:17)
[2022-06-27] MEDS: NORVASC TAB 5 MG PO SCH (09:17)
[2022-06-27] MEDS: ASPIRIN EC 81 MG PO SCH (09:17)
[2022-06-27] MEDS: SINGULAIR TAB 10 MG PO SCH (09:18)
[2022-06-27] MEDS: VASOTEC TAB 20 MG PO SCH ×2 (09:18→21:12)
[2022-06-27] MEDS: ISOSORBIDE DINITRATE PO SCH ×2 (09:18→21:12)
--- NOTE | 2022-06-27 11:10 | US ---
HISTORYHypertensionSTUDYRENAL USCOMPARISONNoneTECHNIQUEMultiple calzada scale and color flow Doppler images of the kidneys were obtained. The region of the urinary bladder was evaluated as well.FINDINGSThe right kidney is normal in echotexture and size. The right kidney measures 10.3 x 4.4 x 4.7 cm. Normal cortical thickness of 1.2 cm is observed. No focal mass, hydronephrosis, or stones identified.The left kidney is unremarkable in its echotexture and size. The left kidney measures 10.7 x 4.2 x 5.0 cm. Normal cortical thickness of 1.5 cm is observed. Anechoic cortical based cystic lesion is noted measuring 4.3 x 3.0 x 3.4 cm. No focal mass, hydronephrosis, or stone can be seen within the left kidney.The region of the urinary bladder is grossly unremarkable.IMPRESSIONCortical a cyst left kidney. Otherwise, unremarkable evaluation of the kidneys.Electronically signed by: JOCELIN POWERS (June 27, 2022 10:58:04)
[2022-06-27] MEDS: RESTORIL CAP 15 MG PO PRN (21:13)
[2022-06-27] MEDS: K-DUR TAB 20 MEQ PO PRN (21:13)
[2022-06-28] MEDS: FLEXERIL TAB 10 MG PO SCH ×3 (05:20→21:05)
[2022-06-28] MEDS: NEURONTIN CAP 400 MG PO SCH (05:20)
[2022-06-28] MEDS: APRESOLINE TAB 25 MG PO SCH ×3 (05:20→21:05)
[2022-06-28 06:45] LABS: BASOPHILS # (AUTO) 0.1 X10^3/uL (0.0-0.1); BASOPHILS % (AUTO) 0.6 % (0.2-1.0); EOSINOPHILS # (AUTO) 0.4 x10^3/uL (0.0-0.2); EOSINOPHILS % (AUTO) 4.7 % (0.9-2.9); HEMOGLOBIN 12.9 g/dL (12.0-16.0); LYMPHOCYTES # (AUTO) 2.3 X10^3/uL (1.3-2.9); LYMPHOCYTES % (AUTO) 27.9 % (21.0-51.0); MEAN CORPUSCULAR HEMOGLOBIN 25.9 pg (27.0-34.0); MEAN CORPUSCULAR HGB CONC 32.1 g/dL (33.0-35.0); MEAN CORPUSCULAR VOLUME 80.7 fL (80.0-100.0); MEAN PLATELET VOLUME 9.4 fL (7.4-11.0); MONOCYTES # (AUTO) 0.8 x10^3/uL (0.3-0.8); MONOCYTES % (AUTO) 10.4 % (0.0-13.0); NEUTROPHILS # (AUTO) 4.5 x10^3/uL (2.2-4.8); NEUTROPHILS % (AUTO) 56.4 % (42.0-75.0); PLATELET COUNT 259 X10^3/uL (150.0-450.0); RED BLOOD COUNT 4.96 X10^6/uL (3.5-5.4); WHITE BLOOD COUNT 8.1 X10^3/uL (3.6-10.0)
[2022-06-28 06:54] LABS: CALCIUM 8.4 mg/dL (8.5-10.1); CARBON DIOXIDE 26.8 mmol/L (21-32); COR CA(FOR HYPOALB) 9.2 mg/dL (8.5-10.1); CREATININE 1.36 mg/dL (0.55-1.02); TOTAL PROTEIN 5.9 g/dL (6.4-8.2)
[2022-06-28] MEDS: VASOTEC TAB 20 MG PO SCH ×2 (08:35→21:05)
[2022-06-28] MEDS: K-DUR TAB 20 MEQ PO SCH (08:35)
[2022-06-28] MEDS: ISOSORBIDE DINITRATE PO SCH ×2 (08:35→21:04)
[2022-06-28] MEDS: MAXZIDE 37.5/25 MG PO SCH (08:35)
[2022-06-28] MEDS: ASPIRIN EC 81 MG PO SCH (08:35)
[2022-06-28] MEDS: XARELTO PO SCH (08:35)
[2022-06-28] MEDS: NORVASC TAB 5 MG PO SCH (08:36)
[2022-06-28] MEDS: SINGULAIR TAB 10 MG PO SCH (08:36)
[2022-06-28] MEDS: ULORIC PO SCH (08:36)
[2022-06-28] MEDS: CARDIZEM CD 240 MG 24-HR PO SCH (10:31)
[2022-06-28] MEDS: FIORICET TAB PO SCH ×2 (10:31→21:06)
[2022-06-28] MEDS: NORCO 5/325 MG TAB PO SCH ×2 (11:16→18:06)
[2022-06-28] MEDS: NEURONTIN CAP 300 MG PO SCH ×2 (14:11→21:05)
[2022-06-28] MEDS: RESTORIL CAP 15 MG PO PRN (21:04)
[2022-06-29] MEDS: NORCO 5/325 MG TAB PO SCH (02:59)
[2022-06-29] MEDS: APRESOLINE TAB 25 MG PO SCH (05:25)
[2022-06-29] MEDS: NEURONTIN CAP 300 MG PO SCH (05:25)
[2022-06-29] MEDS: FLEXERIL TAB 10 MG PO SCH (05:25)
[2022-06-29 06:29] LABS: BASOPHILS # (AUTO) 0.1 X10^3/uL (0.0-0.1); BASOPHILS % (AUTO) 1.2 % (0.2-1.0); EOSINOPHILS # (AUTO) 0.4 x10^3/uL (0.0-0.2); EOSINOPHILS % (AUTO) 4.6 % (0.9-2.9); HEMATOCRIT 41.1 % (36.0-47.0); HEMOGLOBIN 13.2 g/dL (12.0-16.0); LYMPHOCYTES # (AUTO) 2.7 X10^3/uL (1.3-2.9); LYMPHOCYTES % (AUTO) 35.3 % (21.0-51.0); MEAN CORPUSCULAR HEMOGLOBIN 25.8 pg (27.0-34.0); MEAN CORPUSCULAR HGB CONC 32.1 g/dL (33.0-35.0); MEAN CORPUSCULAR VOLUME 80.5 fL (80.0-100.0); MEAN PLATELET VOLUME 9.7 fL (7.4-11.0); MONOCYTES # (AUTO) 0.6 x10^3/uL (0.3-0.8); MONOCYTES % (AUTO) 8.4 % (0.0-13.0); NEUTROPHILS # (AUTO) 3.9 x10^3/uL (2.2-4.8); NEUTROPHILS % (AUTO) 50.5 % (42.0-75.0); PLATELET COUNT 283 X10^3/uL (150.0-450.0); RED BLOOD COUNT 5.11 X10^6/uL (3.5-5.4); WHITE BLOOD COUNT 7.7 X10^3/uL (3.6-10.0)
[2022-06-29 06:53] LABS: ALANINE AMINOTRANSFERASE 28 Units/L (12-78); ALBUMIN 3.1 g/dL (3.4-5.0); ALKALINE PHOSPHATASE 86 Units/L (46-116); ASPARTATE AMINO TRANSFERASE 21 Units/L (15-37); BLOOD UREA NITROGEN 24 mg/dL (7-18); CALCIUM 8.7 mg/dL (8.5-10.1); CHLORIDE 108 mmol/L (98-107); COR CA(FOR HYPOALB) 9.4 mg/dL (8.5-10.1); CREATININE 1.47 mg/dL (0.55-1.02); GLUCOSE 103 mg/dL (65-99); POTASSIUM 4.1 mmol/L (3.5-5.1); SODIUM 143 mmol/L (136-145); eGFR NON BLACK RACES 38 (>60)
[2022-06-29] MEDS: K-DUR TAB 20 MEQ PO SCH (09:32)
[2022-06-29] MEDS: VASOTEC TAB 20 MG PO SCH (09:32)
[2022-06-29] MEDS: FIORICET TAB PO SCH (09:33)
[2022-06-29] MEDS: MAXZIDE 37.5/25 MG PO SCH (09:33)
[2022-06-29] MEDS: ASPIRIN EC 81 MG PO SCH (09:33)
[2022-06-29] MEDS: XARELTO PO SCH (09:34)
[2022-06-29] MEDS: ULORIC PO SCH (09:34)
[2022-06-29] MEDS: ISOSORBIDE DINITRATE PO SCH (09:34)
[2022-06-29] MEDS: CARDIZEM CD 240 MG 24-HR PO SCH (09:34)
[2022-06-29] MEDS: SINGULAIR TAB 10 MG PO SCH (09:34)
[2022-06-29 11:14] VITALS: BP 125/63
== END 2022-06-29 11:40 | disposition home or self-care (01) ==
LOC: MED/SURG
PROVIDERS: ADMIT Internal Medicine; ATTEND Internal Medicine
DX: M19.90 Unspecified osteoarthritis, unspecified site; R51.9 Headache, unspecified; K21.9 Gastro-esophageal reflux disease without esophagitis; I16.0 Hypertensive urgency; R77.8 Other specified abnormalities of plasma proteins; E03.8 Other specified hypothyroidism; R06.02 Shortness of breath; M25.511 Pain in right shoulder; F41.8 Other specified anxiety disorders; E78.49 Other hyperlipidemia

== ENCOUNTER 2023-10-13 06:42 | Observation (INO) ==
[2023-10-13] MEDS: NOZIN NASAL SANITIZER TP ONE (06:58)
[2023-10-13] MEDS: LR 1,000 ML IV 1,000 ML IV ONE (07:00)
[2023-10-13] MEDS: CHECK PATCH XX ONE (07:42)
[2023-10-13] MEDS: BRIDION ONE (08:12)
[2023-10-13] MEDS: NS 100 ML IV 100 ML ONE (08:12)
[2023-10-13] MEDS: VERSED ONE (08:12)
[2023-10-13] MEDS: ZEMURON 100 MG VIAL ONE (08:12)
[2023-10-13] MEDS: TORADOL 30 MG VIAL ONE (08:12)
[2023-10-13] MEDS: FENTANYL VIAL INJ 100 mcg ONE (08:12)
[2023-10-13] MEDS: ANCEF VIAL 1 GRAM ONE (08:12)
[2023-10-13] MEDS: ZOFRAN INJ 4 MG VIAL ONE (08:12)
[2023-10-13] MEDS: REGLAN INJ 10 MG VIAL ONE (08:12)
[2023-10-13] MEDS ORDERED: SUPRANE ONE (08:12)
[2023-10-13] MEDS: DIPRIVAN VIAL 20 ML ONE (08:12)
[2023-10-13] MEDS: PEPCID 20 MG VIAL ONE (08:12)
[2023-10-13] MEDS: XYLOCAINE 2 % (PLAIN) ONE (08:12)
[2023-10-13] MEDS: SUPRANE ONE (08:27)
[2023-10-13] MEDS: BACTROBAN TOPICAL OINT ONE (08:36)
[2023-10-13] MEDS: OFIRMEV IV 1000 MG VIAL 1,000 MG/100 ML VIAL IV ONE (08:50)
[2023-10-13] MEDS ORDERED: BARHEMSYS INJ IVP PRN (08:58)
[2023-10-13] MEDS ORDERED: BENADRYL INJ 50 MG VIAL IVP PRN (08:58)
[2023-10-13] MEDS ORDERED: REGLAN INJ 10 MG VIAL IVP PRN (08:58)
[2023-10-13] MEDS: ROBINUL ONE (08:59)
[2023-10-13] MEDS: APRESOLINE INJ 20 MG VIAL ONE (09:25)
[2023-10-13] MEDS: DILAUDID INJ ONE (09:31)
[2023-10-13] MEDS: DILAUDID INJ IVP PRN (09:53)
[2023-10-13] MEDS ORDERED: LR 1,000 ML IV 1,000 ML IV ONE (10:20)
[2023-10-13] MEDS: ZOFRAN INJ 4 MG VIAL IVP PRN (10:22)
[2023-10-13] MEDS ORDERED: ZOFRAN INJ 4 MG VIAL IV PRN (10:46)
[2023-10-13] MEDS: NORCO 5/325 MG TAB PO PRN (14:15)
[2023-10-13] MEDS: D5 1/2 NS 1,000 ML 1,000 ML IV SCH (14:16)
[2023-10-13] MEDS ORDERED: NS IRRIGATION* 1,000 ML IR ONE (15:59)
[2023-10-13] MEDS: NOZIN NASAL SANITIZER TP SCH (20:27)
[2023-10-14 06:21] LABS: RED CELL DISTRIBUTION WIDTH 14.2 % (11.6-16.5)
[2023-10-14 06:27] LABS: BASOPHILS # (AUTO) 0.1 X10^3/uL (0.0-0.1); BASOPHILS % (AUTO) 0.8 % (0.2-1.0); EOSINOPHILS # (AUTO) 0.2 x10^3/uL (0.0-0.2); EOSINOPHILS % (AUTO) 3.3 % (0.9-2.9); HEMATOCRIT 41.9 % (36.0-47.0); HEMOGLOBIN 13.8 g/dL (12.0-16.0); LYMPHOCYTES % (AUTO) 26.7 % (21.0-51.0); MEAN CORPUSCULAR HEMOGLOBIN 27.9 pg (27.0-34.0); MEAN CORPUSCULAR HGB CONC 32.9 g/dL (33.0-35.0); MEAN CORPUSCULAR VOLUME 84.7 fL (80.0-100.0); MEAN PLATELET VOLUME 9.8 fL (7.4-11.0); MONOCYTES # (AUTO) 0.6 x10^3/uL (0.3-0.8); MONOCYTES % (AUTO) 8.1 % (0.0-13.0); NEUTROPHILS # (AUTO) 4.5 x10^3/uL (2.2-4.8); NEUTROPHILS % (AUTO) 61.1 % (42.0-75.0); PLATELET COUNT 162 X10^3/uL (150.0-450.0); RED BLOOD COUNT 4.95 X10^6/uL (3.5-5.4); WHITE BLOOD COUNT 7.3 X10^3/uL (3.6-10.0)
[2023-10-14 06:40] LABS: ALANINE AMINOTRANSFERASE 21 Units/L (12-78); ALBUMIN 2.7 g/dL (3.4-5.0); ALKALINE PHOSPHATASE 91 Units/L (46-116); ASPARTATE AMINO TRANSFERASE 27 Units/L (15-37); BLOOD UREA NITROGEN 16 mg/dL (7-18); CALCIUM 8.3 mg/dL (8.5-10.1); CARBON DIOXIDE 29.1 mmol/L (21-32); CHLORIDE 105 mmol/L (98-107); COR CA(FOR HYPOALB) 9.3 mg/dL (8.5-10.1); CREATININE 1.49 mg/dL (0.55-1.02); GLUCOSE 85 mg/dL (65-99); SODIUM 141 mmol/L (136-145); TOTAL PROTEIN 5.5 g/dL (6.4-8.2); eGFR NON BLACK RACES 37 (>60)
[2023-10-14 06:42] LABS: POTASSIUM 3.6 mmol/L (3.5-5.1)
[2023-10-14] MEDS ORDERED: CONSULT PHARMACY - POTASSIUM & MAGNESIUM XX SCH (07:00)
[2023-10-14] MEDS ORDERED: TOPROL XL PO ONE (08:11)
[2023-10-14] MEDS: LEVAQUIN PREMIX IV 500 MG 500 MG/100 ML BAG IV SCH (08:28)
[2023-10-14] MEDS: TOPROL XL PO SCH (08:30)
[2023-10-14] MEDS: KLOR-CON PO SCH (08:30)
[2023-10-14 08:37] VITALS: RESP 20
[2023-10-14 09:42] VITALS: BP 188/86; PULSE 55; TEMP 98.1; O2SAT 97
== END 2023-10-14 11:30 | disposition home or self-care (01) ==
LOC: OBS 06:42 → SURG1 06:42 → MED/SURG 12:48
PROVIDERS: ADMIT Surgery; ATTEND Surgery
DX: K80.10 Calculus of gallbladder with chronic cholecystitis without obstruction; E66.01 Morbid (severe) obesity due to excess calories; R10.13 Epigastric pain; Z68.43 Body mass index [BMI] 50.0-59.9, adult; K82.8 Other specified diseases of gallbladder; I48.91 Unspecified atrial fibrillation; I10 Essential (primary) hypertension